=== PATIENT | female | born 2000 | race Caucasian/White ===

== ENCOUNTER 2020-11-02 20:40 | Emergency (ER) | payer OTHER ==
[~2020-11-02] VITALS: Ht 170.2 cm; Wt 66.7 kg
[2020-11-02] MEDS ORDERED: ONDANSETRON 4MG/2ML VIAL IV ONE (21:00)
[2020-11-02] MEDS ORDERED: NS 1,000 ML IV ONE (21:00)
[2020-11-02 21:12] LABS: BASO # 0.1 10^3/uL (0.0-0.2); BASO % 0.7 % (0.0-1.0); EOS # 0.3 10^3/uL (0.0-0.5); EOS % 2.8 % (0.0-3.0); HEMATOCRIT 39.9 % (36.0-47.0); HEMOGLOBIN 13.9 g/dl (12.0-15.5); LYMPH # 3.3 10^3/uL (1.5-5.0); LYMPH % 32.8 % (24.0-44.0); MEAN CORPUSCULAR HEMOGLOBIN 31.8 pg (27.0-33.0); MEAN CORPUSCULAR HGB CONC 34.8 g/dl (32.0-36.5); MEAN CORPUSCULAR VOLUME 91.3 fl (80.0-96.0); MONO # 0.9 10^3/uL (0.0-0.8); MONO % 8.7 % (2.0-8.0); NEUTROPHILS # 5.5 10^3/uL (1.5-8.5); NEUTROPHILS % 54.8 % (36.0-66.0); PLATELET COUNT, AUTOMATED 222 10^3/uL (150-450); RED BLOOD COUNT 4.37 10^6/uL (4.00-5.40); WHITE BLOOD COUNT 9.9 10^3/uL (4.0-10.0)
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
[2020-11-02 21:49] LABS: ACETAMINOPHEN LEVEL < 2.0 UG/ML (10.0-30.0); ALBUMIN 4.1 GM/DL (3.2-5.2); ALT/SGPT 21 U/L (12-78); BILIRUBIN,DIRECT 0.1 MG/DL (0.0-0.2); BILIRUBIN,TOTAL 0.3 MG/DL (0.2-1.0); BLOOD UREA NITROGEN 14 MG/DL (7-18); CALCIUM LEVEL 9.3 MG/DL (8.5-10.1); CARBON DIOXIDE LEVEL 27 MEQ/L (21-32); CHLORIDE LEVEL 108 MEQ/L (98-107); CREATININE FOR GFR 0.76 MG/DL (0.55-1.30); ETHYL ALCOHOL (ETHANOL) 0.077 % (0.000-0.010); GLUCOSE, FASTING 85 MG/DL (70-100); POTASSIUM SERUM 3.5 MEQ/L (3.5-5.1); SALICYLATE LEVEL < 1.7 MG/DL (5.0-30.0); SODIUM LEVEL 144 MEQ/L (136-145); TOTAL PROTEIN 7.1 GM/DL (6.4-8.2)
[2020-11-02 22:55] VITALS: BP 121/63
--- NOTE | 2020-11-03 09:27 | ECGEPIP ---
[facility] - ED Test Date: 2020-11-02 Pat Name: BENI SANTIAGO Department: Room: - Gender: Female [employer]: : [id number] Requested By: [address] Order Number: [id number] Reading MD: Mike Domingo Measurements Intervals [place] Rate: 59 P: 38 IN: 170 QRS: 67 QRSD: 92 T: 55 QT: 402 QTc: 397 Interpretive Statements Sinus bradycardia POOR R WAVE PROGRESSION BENIGN EARLY REPOLARIZATION NO PRIORS FOR COMPARISON Electronically Signed on 11-03-2020 9:27:20 EST by Mike Domingo
== END 2020-11-02 23:03 | disposition home or self-care (01) ==
LOC: M ED 20:40
DX: S09.90XA Unspecified injury of head, initial encounter (principal); W50.0XXA Accidental hit or strike by another person, initial encounter; Y93.23 Activity, snow (alpine) (downhill) skiing, snowboarding, sledding, tobogganing and snow tubing; Y99.9 Unspecified external cause status; R56.9 Unspecified convulsions; Z88.0 Allergy status to penicillin; Z88.1 Allergy status to other antibiotic agents
CPT/HCPCS: 70450; 70486; 72125; 80048; 80076; 80143; 82077; 83605; 84443; 84702; 85025; 93005; 93041; 94760; 96361; 96374; 99285; J2405

== ENCOUNTER 2021-02-16 20:36 | Emergency (ER) | payer OTHER ==
[~2021-02-16] VITALS: Ht 170.2 cm; Wt 61.4 kg
[2021-02-16] MEDS ORDERED: VALT1TAB PO (20:43)
[2021-02-16] MEDS ORDERED: PRENTAB9 PO (20:44)
[2021-02-16 21:02] LABS: BASO % 0.3 % (0.0-1.0); EOS # 0.1 10^3/uL (0.0-0.5); EOS % 1.2 % (0.0-3.0); HEMATOCRIT 36.4 % (36.0-47.0); HEMOGLOBIN 12.7 g/dl (12.0-15.5); LYMPH # 2.7 10^3/uL (1.5-5.0); LYMPH % 23.4 % (24.0-44.0); MEAN CORPUSCULAR HEMOGLOBIN 31.8 pg (27.0-33.0); MEAN CORPUSCULAR HGB CONC 34.9 g/dl (32.0-36.5); MONO # 0.6 10^3/uL (0.0-0.8); MONO % 5.2 % (2.0-8.0); NEUTROPHILS # 7.9 10^3/uL (1.5-8.5); NEUTROPHILS % 69.6 % (36.0-66.0); PLATELET COUNT, AUTOMATED 173 10^3/uL (150-450); WHITE BLOOD COUNT 11.4 10^3/uL (4.0-10.0)
[2021-02-16 21:32] LABS: BLOOD UREA NITROGEN 9 MG/DL (7-18); CALCIUM LEVEL 9.1 MG/DL (8.5-10.1); CARBON DIOXIDE LEVEL 26 MEQ/L (21-32); CHLORIDE LEVEL 104 MEQ/L (98-107); CREATININE FOR GFR 0.47 MG/DL (0.55-1.30); GLUCOSE, FASTING 90 MG/DL (70-100); POTASSIUM SERUM 3.7 MEQ/L (3.5-5.1); SODIUM LEVEL 137 MEQ/L (136-145)
[2021-02-16] MEDS ORDERED: RHOGAM 300 MCG (1500 IU) INJ (J2790) IM ONE (21:45)
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
[2021-02-16 23:53] VITALS: BP 116/70
== END 2021-02-16 23:54 | disposition home or self-care (01) ==
LOC: M ED 20:36
DX: O26.852 Spotting complicating pregnancy, second trimester (principal); W50.0XXA Accidental hit or strike by another person, initial encounter; Y92.9 Unspecified place or not applicable; Y93.9 Activity, unspecified; Y99.9 Unspecified external cause status; Z3A.14 14 weeks gestation of pregnancy; Z88.0 Allergy status to penicillin
CPT/HCPCS: 76811; 80048; 85025; 86850; 86901; 96372; 99283; J2790

== ENCOUNTER 2021-08-11 05:08 | Inpatient (IN) | payer OTHER ==
[2021-08-11] VITALS (7 sets, daily range): BP systolic 116–130; BP diastolic 57–77
[~2021-08-11] VITALS: Ht 170.2 cm; Wt 78.2 kg
[~2021-08-11 05:08] MED LIST: BICITRA 30ML SOLN UDC PO ONE; CLINDAMYCIN 900 MG in IV 1 EA IV ONE; FOLI1TAB11 PO; GENTAMICIN 380 MG in D5W 100 ML IV ONE; LR 1,000 ML IV SCH; LR 500 ML IV ONE; PRENTAB9 PO; VALT1TAB PO
[2021-08-11 06:05] LABS: HEMATOCRIT 37.5 % (36.0-47.0); HEMOGLOBIN 13.1 g/dl (12.0-15.5); MEAN CORPUSCULAR HEMOGLOBIN 33.2 pg (27.0-33.0); MEAN CORPUSCULAR HGB CONC 34.9 g/dl (32.0-36.5); MEAN CORPUSCULAR VOLUME 95.2 fl (80.0-96.0); PLATELET COUNT, AUTOMATED 163 10^3/uL (150-450); RED BLOOD COUNT 3.94 10^6/uL (4.00-5.40); WHITE BLOOD COUNT 10.5 10^3/uL (4.0-10.0)
[2021-08-11] MEDS ORDERED: dexameTHASONE 4 MG/ML 1ML VIAL (J1100 PER 1MG) As Ordered ONE (07:21)
[2021-08-11] MEDS ORDERED: KETOROLAC 60MG 2ML VIAL As Ordered ONE (07:21)
[2021-08-11] MEDS ORDERED: OXYTOCIN INJ 10 UNITS/ML VIAL (J2590) As Ordered ONE (07:21)
[2021-08-11] MEDS ORDERED: ONDANSETRON 4MG/2ML VIAL As Ordered ONE (07:21)
[2021-08-11] MEDS ORDERED: fentaNYL 100 MCG/2 ML INJECTION As Ordered ONE (07:22)
[2021-08-11] MEDS ORDERED: MORPHINE PRES-FREE INJ 10 MG/10 ML VIAL (J2274) As Ordered ONE (07:22)
[2021-08-11] MEDS ORDERED: METOCLOPRAMIDE INJ 10MG/2ML VIAL (J2765 PER 1) IV PRN (07:56)
[2021-08-11] MEDS ORDERED: ONDANSETRON 4MG/2ML VIAL IV PRN ×2 (07:56→09:20)
[2021-08-11] MEDS ORDERED: diphenhydrAMINE 50MG/ML VIAL (J1200) IV PRN (07:56)
[2021-08-11] MEDS ORDERED: NALOXONE INJ 0.4MG/1ML VIAL (J2310 PER 1MG) IV PRN ×2 (07:56)
[2021-08-11] MEDS ORDERED: NALBUPHINE HCL 10 MG/ML AMP (J2300) IV PRN (07:56)
[2021-08-11] MEDS ORDERED: ePHEDrine SULFATE 25 MG/5 ML(5MG/ML) SYRINGE As Ordered ONE (08:04)
[2021-08-11] MEDS ORDERED: CLINDAMYCIN 900 MG/50 ML PREMIX BAG As Ordered ONE (08:04)
[2021-08-11] MEDS ORDERED: CLINDAMYCIN 900 MG in IV 1 EA IV ONE (08:15)
[2021-08-11] MEDS ORDERED: oxyCODONE 5MG TAB PO PRN ×3 (09:20→09:25)
[2021-08-11] MEDS ORDERED: fentaNYL 100 MCG/2 ML INJECTION IV PRN (09:20)
[2021-08-11] MEDS ORDERED: RHOGAM 300 MCG (1500 IU) INJ (J2790) IM SCH (09:25)
[2021-08-11] MEDS ORDERED: MOM 30ML SUSPENSION UDC PO PRN (09:25)
[2021-08-11] MEDS ORDERED: MEASLES,MUMPS,RUBELLA VACCINE INJ (MMR-II) (90707) SC SCH (09:25)
[2021-08-11] MEDS ORDERED: SIMETHICONE 80MG CHEW TAB PO PRN (09:25)
[2021-08-11] MEDS: LR 1,000 ML IV SCH ×2 (10:08→17:47)
[2021-08-11] MEDS ORDERED: ESCITALOPRAM OXALATE 10 MG TAB (LEXAPRO) PO ONE (12:00)
[2021-08-11] MEDS: PRENATAL VITAMINS CHEWABLE TABLET PO SCH (13:31)
[2021-08-11] MEDS: KETOROLAC 30 MG/ML 1ML VIAL IV SCH ×2 (15:55→21:00)
[2021-08-11] MEDS: DOCUSATE SODIUM 100MG CAPSULE PO SCH (21:00)
[2021-08-12 02:00] VITALS: BP 109/53
[2021-08-12] MEDS: LR 1,000 ML IV SCH ×3 (02:05→18:05)
[2021-08-12] MEDS: KETOROLAC 30 MG/ML 1ML VIAL IV SCH (03:15)
[2021-08-12 06:00] VITALS: BP 105/63
[2021-08-12 07:15] LABS: HEMATOCRIT 31.5 % (36.0-47.0); MEAN CORPUSCULAR HEMOGLOBIN 32.7 pg (27.0-33.0); MEAN CORPUSCULAR HGB CONC 33.7 g/dl (32.0-36.5); MEAN CORPUSCULAR VOLUME 97.2 fl (80.0-96.0); PLATELET COUNT, AUTOMATED 137 10^3/uL (150-450); RED BLOOD COUNT 3.24 10^6/uL (4.00-5.40); WHITE BLOOD COUNT 12.3 10^3/uL (4.0-10.0)
[2021-08-12 07:18] LABS: HEMOGLOBIN 10.6 g/dl (12.0-15.5)
[2021-08-12] MEDS: DOCUSATE SODIUM 100MG CAPSULE PO SCH ×2 (09:07→21:42)
[2021-08-12] MEDS: PRENATAL VITAMINS CHEWABLE TABLET PO SCH (09:07)
[2021-08-12 10:00] VITALS: BP 139/63
[2021-08-12] MEDS: IBUPROFEN 800 MG TAB PO SCH ×2 (12:39→19:26)
[2021-08-12 14:00] VITALS: BP 115/59
[2021-08-12 18:12] VITALS: BP 131/73
[2021-08-12 22:00] VITALS: BP 130/72
[2021-08-13 02:00] VITALS: BP 110/58
[2021-08-13 06:00] VITALS: BP 123/74
[2021-08-13] MEDS ORDERED: OXYC-517 PO (07:13)
[2021-08-13] MEDS ORDERED: IBUP80TA PO (07:13)
[2021-08-13] MEDS: PRENATAL VITAMINS CHEWABLE TABLET PO SCH (08:54)
[2021-08-13] MEDS: DOCUSATE SODIUM 100MG CAPSULE PO SCH (08:54)
== END 2021-08-13 10:14 | disposition home or self-care (01) | DRG 773 ==
LOC: M LDI 05:08 → M OBS 10:45
PROVIDERS: ADMIT Obstetrics & Gynecology; ATTEND Obstetrics & Gynecology
PROC: 10D00Z1 Extraction of Products of Conception, Low, Open Approach (ICD-10-PCS; principal; 2021-08-11 07:30)
DX: O32.1XX0 Maternal care for breech presentation, not applicable or unspecified (principal); O99.824 Streptococcus B carrier state complicating childbirth; Z3A.39 39 weeks gestation of pregnancy; Z37.0 Single live birth

== ENCOUNTER 2022-04-13 13:09 | Emergency (ER) | payer OTHER ==
[~2022-04-13] VITALS: Ht 170.2 cm; Wt 63.9 kg
[~2022-04-13 13:09] MED LIST changes: -BICITRA 30ML SOLN UDC PO ONE; -CLINDAMYCIN 900 MG in IV 1 EA IV ONE; -GENTAMICIN 380 MG in D5W 100 ML IV ONE; +IBUP80TA PO; -LR 1,000 ML IV SCH; -LR 500 ML IV ONE; +OXYC-517 PO
[2022-04-13 13:10] VITALS: BP 124/76
[2022-04-13] MEDS ORDERED: LEXA1TAB (13:17)
[2022-04-13 13:40] LABS: HEMATOCRIT 41.4 % (36.0-47.0); HEMOGLOBIN 13.8 g/dl (12.0-15.5); MEAN CORPUSCULAR HEMOGLOBIN 31.3 pg (27.0-33.0); MEAN CORPUSCULAR HGB CONC 33.3 g/dl (32.0-36.5); MEAN CORPUSCULAR VOLUME 93.9 fl (80.0-96.0); PLATELET COUNT, AUTOMATED 253 10^3/uL (150-450); RED BLOOD COUNT 4.41 10^6/uL (4.00-5.40); WHITE BLOOD COUNT 8.5 10^3/uL (4.0-10.0)
[2022-04-13 15:28] LABS: GC DNA AMPLIFICATION NEGATIVE (NEGATIVE)
== END 2022-04-13 14:56 | disposition home or self-care (01) ==
LOC: M ED 13:09
DX: N93.9 Abnormal uterine and vaginal bleeding, unspecified (principal); F17.200 Nicotine dependence, unspecified, uncomplicated; Z88.0 Allergy status to penicillin; Z88.1 Allergy status to other antibiotic agents; Z79.899 Other long term (current) drug therapy

== ENCOUNTER 2022-07-27 22:10 | Emergency (ER) | payer OTHER ==
[~2022-07-27] VITALS: Ht 170.2 cm; Wt 59.6 kg
[~2022-07-27 22:10] MED LIST changes: +DOXY-443 PO; +LEXA1TAB
[2022-07-28 00:29] LABS: BASO % 0.3 % (0.0-1.0); EOS # 0.1 10^3/uL (0.0-0.5); EOS % 1.1 % (0.0-3.0); HEMATOCRIT 41.1 % (36.0-47.0); HEMOGLOBIN 13.9 g/dl (12.0-15.5); LYMPH % 26.1 % (24.0-44.0); MEAN CORPUSCULAR HGB CONC 33.8 g/dl (32.0-36.5); MEAN CORPUSCULAR VOLUME 91.7 fl (80.0-96.0); MONO # 0.8 10^3/uL (0.0-0.8); NEUTROPHILS # 7.5 10^3/uL (1.5-8.5); NEUTROPHILS % 64.9 % (36.0-66.0); PLATELET COUNT, AUTOMATED 280 10^3/uL (150-450); RED BLOOD COUNT 4.48 10^6/uL (4.00-5.40); WHITE BLOOD COUNT 11.6 10^3/uL (4.0-10.0)
[2022-07-28] MEDS ORDERED: RHOGAM 300 MCG (1500 IU) INJ (J2790) IM ONE (01:50)
[2022-07-28] MEDS ORDERED: NORCO, ANEXSIA 5/325MG TABLET (HYDROcodone/ACETAMINOPHEN) PO ONE (02:10)
[2022-07-28] MEDS ORDERED: NORCO 5/325MG TABLET (HOME DOSE PACK) PO ONE (02:20)
[2022-07-28 02:40] VITALS: BP 122/82
== END 2022-07-28 02:41 | disposition home or self-care (01) ==
LOC: M ED 22:10
DX: O03.9 Complete or unspecified spontaneous abortion without complication (principal); Z79.899 Other long term (current) drug therapy; Z88.0 Allergy status to penicillin
CPT/HCPCS: 76801; 76817; 81000; 81015; 84702; 85025; 86850; 86900; 86901; 87086; 93976; 96372; 99283; J2790

== ENCOUNTER 2022-10-06 13:58 | Emergency (ER) | payer OTHER ==
[~2022-10-06] VITALS: Ht 170.2 cm; Wt 61.4 kg
[2022-10-06 19:35] LABS: URINE PREG TEST NEGATIVE (NEGATIVE)
[2022-10-06 20:15] LABS: GC DNA AMPLIFICATION NEGATIVE (NEGATIVE)
[2022-10-06] MEDS ORDERED: METR-265 PO (20:19)
[2022-10-06] MEDS ORDERED: metroNIDAZOLE (FLAGYL) 500MG TABLET PO ONE (20:20)
[2022-10-06 20:25] VITALS: BP 111/72
== END 2022-10-06 20:27 | disposition home or self-care (01) ==
LOC: M ED 13:58
DX: N76.0 Acute vaginitis (principal); Z88.0 Allergy status to penicillin; Z88.1 Allergy status to other antibiotic agents; Z79.2 Long term (current) use of antibiotics